=== PATIENT | male | born 1945 | race Caucasian/White ===

== ENCOUNTER 2019-11-04 20:16 | Inpatient (IN) | payer MEDICARE ==
[~2019-11-04] VITALS: Ht 193 cm; Wt 119.7 kg
[~2019-11-04 20:16] MED LIST: AMOX500 PO; ASPI325 PO; ATOR10; DIPASPER PO; LISHYD1012 PO; LISI5 PO; MULVITMIND PO; RAMI2.5 PO; TEMA7.5 PO
[2019-11-04] MEDS ORDERED: PRINIVIL10 MG PO (20:25)
[2019-11-05 01:56] LABS: BASOPHILS ABSOLUTE AUTO 0.02 K/mm3 (0.00-0.23); BASOPHILS PERCENT AUTO 0 % (0-2); EOSINOPHILS ABSOLUTE AUTO 0.02 K/mm3 (0.00-0.68); EOSINOPHILS PERCENT AUTO 0 % (0-6); Hemoglobin 14.2 g/dL (13.5-17.5); IMMATURE GRAN ABSOLUTE AUTO 0.06 K/mm3 (0.00-0.10); IMMATURE GRAN PERCENT AUTO 1 % (0-1); LYMPHOCYTES ABSOLUTE AUTO 0.67 K/mm3 (0.84-5.20); LYMPHOCYTES PERCENT AUTO 8 % (21-46); MONOCYTES ABSOLUTE AUTO 0.88 K/mm3 (0.16-1.47); MONOCYTES PERCENT AUTO 10 % (4-13); Mean Corpuscular HGB 31.7 pg (26.0-34.0); Mean Corpuscular Volume 96 fL (80-100); Mean Platelet Volume 12.3 fL (9.1-12.4); NEUTROPHILS ABSOLUTE AUTO 7.04 K/mm3 (1.96-9.15); NEUTROPHILS PERCENT AUTO 81 % (41-73); Platelet Count 100 K/mm3 (150-400); RDW Coefficient Variation 14.2 % (11.7-14.2); RDW Standard Deviation 50.2 fL (35.1-46.3); Red Blood Cell Count 4.48 M/mm3 (4.30-5.90); White Blood Cell Count 8.69 K/mm3 (4.00-11.30)
[2019-11-05 01:58] LABS: International Normalized Ratio 1.1; Prothrombin Time Results 11.7 Sec (9.7-11.5)
[2019-11-05 02:06] LABS: Alanine Aminotransfer (ALT/SGP 21 U/L (12-78); Albumin, Blood 3.7 g/dL (3.4-5.0); Albumin/Globulin Ratio 0.9 (0.8-1.8); Alk Phos 71 U/L (50-136); Anion Gap 4 mmol/L (6-16); Aspartate Aminotrans (AST/SGOT 24 U/L (12-37); Bilirubin, Total 1.1 mg/dL (0.1-1.0); Blood Urea Nitrogen 18 mg/dL (8-24); Bun/Creatinine Ratio 25.4 (12.0-20.0); CO2, Blood 29 mmol/L (21-32); Calcium, Blood 8.5 mg/dL (8.5-10.1); Chloride, Blood 106 mmol/L (98-108); Creatinine, Blood 0.71 mg/dL (0.60-1.20); Glomerular Filtration Rate >60 (60-); Glucose, Blood 119 mg/dL (70-99); Potassium, Blood 3.8 mmol/L (3.5-5.5); Sodium, Blood 139 mmol/L (136-145); Total Protein, Blood 7.7 g/dL (6.4-8.2)
--- NOTE | 2019-11-05 07:48 | NUR ---
PT NEW ADMIT THIS SHIFT FOR R HIP FX. PT VSS. PT REP PAIN JJ 06/01, DECLINED NEED FOR PAIN MEDS. PT REP BETTER ROM OF RLE, LESS PAIN W/MVMT, IS ABLE TO SHIFT SELF IN BED. PT NPO PER ORDERS, PENDING ORTHO CONSULT. BEDSIDE REPORT GIVEN TO DAY RN.
--- NOTE | 2019-11-05 08:44 | NUR ---
DR CASEY REPORTS OK TO GIVE LOVENOX THIS AM AND THAT PT MAY EAT THIS AM.
--- NOTE | 2019-11-05 13:36 | NUR ---
DR EDWARDS RECENTLY TO SEE PT.
--- NOTE | 2019-11-05 16:52 | NUR ---
DR CASEY HERE TO SEE PT.
--- NOTE | 2019-11-05 18:00 | NUR ---
SHIFT SUMMARY PT EATING AND DRINKING, VOIDING, PASSING GAS. PT MOVING SELF IN BED. BEEN ASSISTED WITH REPOSITIOINING AT TIMES. PT BEEN ASSISTED WITH ADL'S PRN. BRYANT VALENTINE IN TO SEE PT TODAY.
--- NOTE | 2019-11-06 05:47 | NUR ---
SHIFT SUMMARY PT IS A/OX4 WITH VSS. DECLINED PAIN OR NEED FOR PAIN MEDICATION T/O SHIFT, REPORTS DISCOMFORT ONLY WITH MOVEMENT. OFFERED MEDS AND EDUCATED ON IMPORTANCE OF PAIN CONTROL OFTEN. PT ALLOWED ASSISTANCE WITH REPOSITIONING PRN. ACCEPTED ICE THERAPY THIS MORNING. BED BATH AND LINEN CHANGED REQUIRED R/T URINAL. CL DIET SINCE MIDNIGHT. PLAN CL UNTIL 1000 TODAY, THEN NPO- PER ORDERS. PLAN FOR SURGERY TODAY FOR RIGHT HIP FX. PT IS CURRENTLY RESTING IN BED WITH CALL LIGHT IN REACH. WILL CONT TO MONITOR AND GIVE REPORT TO ONCOMING RN.
--- NOTE | 2019-11-06 12:36 | NUR ---
PT OUT OF ROOM FOR PROCEDURE.
--- NOTE | 2019-11-06 12:36 | NUR ---
PT OUT OF ROOM IN BED WITH OTHER STAFF. PT REPORTS RECENTLY VOIDED.
--- NOTE | 2019-11-06 12:47 | NUR ---
History, Chart, Medications and Allergies reviewed before start of procedure. Patient confirms NPO status and agrees with scheduled surgery.
--- NOTE | 2019-11-06 13:03 | NUR ---
KNEE HIGH ERIN HOSE AND CALF PAS TO LLE INTACT.
--- NOTE | 2019-11-06 13:29 | NUR ---
NOZIN NASAL TANKAGE GRINDER OPERATOR X3 AMPULES TO NARES BILAT.
--- NOTE | 2019-11-06 18:32 | NUR ---
SHIFT SUMMARY PT WAS CLEAR LIQ UNTIL 10:OO AM. PT BEEN PLEASANT AND COOPERATIVE. PT PT BEEN ASSISTED WITH ADL'S PRN. PT CONT TO BE OUT OF ROOM FOR PROCEDURE.
--- NOTE | 2019-11-06 19:29 | NUR ---
REPORT RECEIVED FROM PACU NURSE, LO AT THIS TIME. AWAITING PT ARRIVAL TO UNIT FROM PACU.
[2019-11-06 19:43] LABS: Hemoglobin 12.1 g/dL (13.5-17.5); Mean Corpuscular HGB 31.8 pg (26.0-34.0); Mean Corpuscular HGB Conc 32.7 g/dL (31.5-36.5); Mean Corpuscular Volume 97 fL (80-100); Mean Platelet Volume 12.1 fL (9.1-12.4); Platelet Count 75 K/mm3 (150-400); RDW Coefficient Variation 14.3 % (11.7-14.2); RDW Standard Deviation 51.5 fL (35.1-46.3); White Blood Cell Count 10.21 K/mm3 (4.00-11.30)
--- NOTE | 2019-11-06 20:18 | NUR ---
ARRIVAL TO SURGICAL FLOOR FROM PACU PT ARRIVED FROM PACU AT 1945 TODAY VIA HOSPITAL BED. PT A/OX4 WITH VSS. DENIES CP, SOB, OR PAIN. ABLE TO WIGGLE FINGERS/TOES. SPO2 AT 99% ON 3L NC, WILL WEAN PER ORDERS. PT DENIES N/V, REQUESTING FOOD AND WATER. AQUACEL TO R HIP APPEARS C/D/I. SCD'S, POLAR PACK, AND ERIN IN PLACE. IVF INFUSING PER ORDERS. EDUCATED ON TURN/COUGH/DB, PT DEMONSTRATED. PT CURRENTLY RESTING IN BED WITH CALL LIGHT IN REACH. WILL CONT TO MONITOR.
--- NOTE | 2019-11-07 01:20 | NUR ---
DR. HYLTON NOTIFIED OF PT'S TRENDING DOWN BP WITH MOST RECENT AT 87/54 HR 75. PT IS A/OX4 AND ASYMPTOMATIC. ORDERS FOR 500ML FLUID BOLUS WO OBTAINED. WILL IMPLEMENT ORDER AND CONT TO MONITOR PATIENT.
--- NOTE | 2019-11-07 02:11 | NUR ---
BP UPDATE PT'S BP AFTER BOLUS IS 99/58 WITH HR OF 87 BPM. PT APPEARS TO BE RESTING COMFORTABLY IN BED. IS EASILY AROUSABLE. DENIES NEEDS. HAS CALL LIGHT IN REACH. WILL CONT TO MONITOR.
--- NOTE | 2019-11-07 03:47 | NUR ---
SHIFT SUMMARY POD 1 RIGHT HIP REVISION; AQUACEL C/D/I. A/OX4, VSS AFTER 500ML BOLUS. SPO2 AT 93% ON 2L, ENCOURAGED FREQUENT DEEP BREATHING/TURN/COUGH. IVF AND ABX INFUSED PER ORDERS. POLAR PACK, TEDS, FOAM WEDGE, AND SCDS IN PLACE. DENIED PAIN T/O SHIFT. GOOD PO INTAKE, DENIES N/V. DERAS REMOVED AT 0345, AWAITING VOID. REPOSITIONED PRN, PT ABLE TO ASSIST. APPEARS TO HAVE SLEPT WELL T/O SHIFT. PLAN FOR PT/OT TODAY. PT CURRENTLY RESTING IN BED WITH CALL LIGHT IN REACH. WILL CONT TO MONITOR AND GIVE REPORT TO ONCOMING RN.
[2019-11-07 04:23] LABS: BASOPHILS ABSOLUTE AUTO 0.01 K/mm3 (0.00-0.23); BASOPHILS PERCENT AUTO 0 % (0-2); EOSINOPHILS PERCENT AUTO 0 % (0-6); Hematocrit 33.7 % (37.0-53.0); Hemoglobin 10.8 g/dL (13.5-17.5); IMMATURE GRAN ABSOLUTE AUTO 0.04 K/mm3 (0.00-0.10); IMMATURE GRAN PERCENT AUTO 0 % (0-1); LYMPHOCYTES ABSOLUTE AUTO 0.61 K/mm3 (0.84-5.20); LYMPHOCYTES PERCENT AUTO 7 % (21-46); MONOCYTES ABSOLUTE AUTO 0.76 K/mm3 (0.16-1.47); MONOCYTES PERCENT AUTO 8 % (4-13); Mean Corpuscular HGB 31.8 pg (26.0-34.0); Mean Corpuscular Volume 99 fL (80-100); Mean Platelet Volume 12.3 fL (9.1-12.4); NEUTROPHILS ABSOLUTE AUTO 7.96 K/mm3 (1.96-9.15); NEUTROPHILS PERCENT AUTO 85 % (41-73); Platelet Count 72 K/mm3 (150-400); RDW Coefficient Variation 14.3 % (11.7-14.2); RDW Standard Deviation 52.1 fL (35.1-46.3); White Blood Cell Count 9.38 K/mm3 (4.00-11.30)
[2019-11-07 04:34] LABS: Anion Gap 2 mmol/L (6-16); Blood Urea Nitrogen 19 mg/dL (8-24); Bun/Creatinine Ratio 29.3 (12.0-20.0); CO2, Blood 27 mmol/L (21-32); Calcium, Blood 7.7 mg/dL (8.5-10.1); Chloride, Blood 108 mmol/L (98-108); Creatinine, Blood 0.65 mg/dL (0.60-1.20); Glomerular Filtration Rate >60 (60-); Glucose, Blood 150 mg/dL (70-99); Potassium, Blood 4.3 mmol/L (3.5-5.5); Sodium, Blood 137 mmol/L (136-145)
--- NOTE | 2019-11-07 17:18 | NUR ---
SHIFT SUMMARY PT IS POD#1 FROM A R HIP REPAIR WITH DR. CASEY. HE WORKED WITH THERAPY BUT WAS UNABLE TO GET OOB TO THE CHAIR. HE IS VOIDING USING THE URINAL. PAIN HAS BEEN MANAGED WITH OXYCODONE AND TYLENOL. PT IS TOLERATING PO. VSS. WILL MONITOR UNTIL REPORT TO ONCOMING RN.
[2019-11-08 04:21] LABS: BASOPHILS ABSOLUTE AUTO 0.02 K/mm3 (0.00-0.23); BASOPHILS PERCENT AUTO 0 % (0-2); EOSINOPHILS ABSOLUTE AUTO 0.18 K/mm3 (0.00-0.68); EOSINOPHILS PERCENT AUTO 2 % (0-6); Hematocrit 32.2 % (37.0-53.0); Hemoglobin 10.4 g/dL (13.5-17.5); IMMATURE GRAN ABSOLUTE AUTO 0.04 K/mm3 (0.00-0.10); IMMATURE GRAN PERCENT AUTO 1 % (0-1); LYMPHOCYTES ABSOLUTE AUTO 0.88 K/mm3 (0.84-5.20); LYMPHOCYTES PERCENT AUTO 11 % (21-46); MONOCYTES ABSOLUTE AUTO 0.69 K/mm3 (0.16-1.47); MONOCYTES PERCENT AUTO 8 % (4-13); Mean Corpuscular HGB 31.7 pg (26.0-34.0); Mean Corpuscular HGB Conc 32.3 g/dL (31.5-36.5); Mean Corpuscular Volume 98 fL (80-100); Mean Platelet Volume 12.6 fL (9.1-12.4); NEUTROPHILS ABSOLUTE AUTO 6.38 K/mm3 (1.96-9.15); NEUTROPHILS PERCENT AUTO 78 % (41-73); Platelet Count 82 K/mm3 (150-400); RDW Coefficient Variation 14.4 % (11.7-14.2); Red Blood Cell Count 3.28 M/mm3 (4.30-5.90); White Blood Cell Count 8.19 K/mm3 (4.00-11.30)
[2019-11-08 04:43] LABS: Anion Gap 3 mmol/L (6-16); Blood Urea Nitrogen 22 mg/dL (8-24); Bun/Creatinine Ratio 30.8 (12.0-20.0); CO2, Blood 27 mmol/L (21-32); Calcium, Blood 7.9 mg/dL (8.5-10.1); Chloride, Blood 108 mmol/L (98-108); Creatinine, Blood 0.72 mg/dL (0.60-1.20); Glomerular Filtration Rate >60 (60-); Glucose, Blood 109 mg/dL (70-99); Potassium, Blood 4.1 mmol/L (3.5-5.5); Sodium, Blood 138 mmol/L (136-145)
--- NOTE | 2019-11-08 04:55 | NUR ---
SHIFT SUMMARY POD 2 TOTAL HIP REVISION WITH ORIF AA0X4,VSS. PT DENIES PAIN DURING SHIFT, MEDICATED PER EMAR. DRESSING CDI. PT USING CALL LIGHT APPROPRIATLY. VOIDING IN URINAL. TOLERATING PO WELL. PLAN TO CONTINUE WORKING WITH THERAPY TODAY.
--- NOTE | 2019-11-08 11:58 | NUR ---
11/08/19 1158 Papst,Catracho D IMPLANTS DOCUMENTED AFTER BUILT
--- NOTE | 2019-11-08 12:45 | NUR ---
PT HAS BEEN ENCOURAGED T/O THE DAY TO GET OOB AND SIT IN HIS CHAIR. HE HAS DECLINED, STATING THAT HE DID NOT SLEEP WELL LAST NIGHT AND WISHED TO REMAIN IN BED. PT DID PARTICIPATE WITH THERAPY AND SAT UP TO THE CHAIR DURING THERAPY. CASSANDRA DENTON NOTIFIED. WILL CONTINUE TO ENCOURAGE MOBILITY UNTIL DISCHARGE. PLAN TO PROVIDE EDUCATION REGARDING RISKS OF LIMITED MOVEMENT.
--- NOTE | 2019-11-08 14:03 | NUR ---
SHIFT SUMMARY PT IS POD# 2 FROM R HIP REPAIR WITH DR. CASEY. HE IS TOLERATING PO; HOWEVER HIS URINE REMAINS DARK AND CONCENTRATED. PT PROVIDED WITH PEDIALYTE PER HIS REQUEST FOR HYDRATION. PT WAS ABLE TO STAND AT THE EDGE OF THE BED; HOWEVER HE HAS BEEN UNABLE TO MAINTAIN WB STATUS TO TRANSFER TO A CHAIR. HE LIKES TO DO THERAPY EXERCISES IN BED INDEPENDENTLY. VSS.
--- NOTE | 2019-11-08 14:33 | NUR ---
ASSUMED CARE OF PT, DENIES ANY PAIN OR ANY DISCOMFORT AT THIS TIME, ASSISTED TO REPOSITION IN BED, REPORTS HE HAS BEEN WORKING ON HIS BED EXERCISES PER PT, DSG C/D/I, CONT. TO MONITOR FOR ANY CHANGES.
--- NOTE | 2019-11-08 18:27 | NUR ---
REPORTS ABD PAIN IS SLIGHTLY BETTER, DENIES ANY NAUSEA BUT C/O FEELING CONSTIPATED, MOM GIVEN THIS AFTERNOON, NO ACUTE CHANGES THIS SHIFT.
[2019-11-09 03:59] LABS: BASOPHILS ABSOLUTE AUTO 0.01 K/mm3 (0.00-0.23); BASOPHILS PERCENT AUTO 0 % (0-2); EOSINOPHILS ABSOLUTE AUTO 0.17 K/mm3 (0.00-0.68); EOSINOPHILS PERCENT AUTO 2 % (0-6); Hematocrit 29.3 % (37.0-53.0); Hemoglobin 9.4 g/dL (13.5-17.5); IMMATURE GRAN ABSOLUTE AUTO 0.03 K/mm3 (0.00-0.10); IMMATURE GRAN PERCENT AUTO 0 % (0-1); LYMPHOCYTES ABSOLUTE AUTO 0.79 K/mm3 (0.84-5.20); LYMPHOCYTES PERCENT AUTO 10 % (21-46); MONOCYTES ABSOLUTE AUTO 0.78 K/mm3 (0.16-1.47); MONOCYTES PERCENT AUTO 10 % (4-13); Mean Corpuscular HGB 31.6 pg (26.0-34.0); Mean Corpuscular HGB Conc 32.1 g/dL (31.5-36.5); Mean Corpuscular Volume 99 fL (80-100); Mean Platelet Volume 11.9 fL (9.1-12.4); NEUTROPHILS ABSOLUTE AUTO 6.02 K/mm3 (1.96-9.15); NEUTROPHILS PERCENT AUTO 77 % (41-73); Platelet Count 94 K/mm3 (150-400); RDW Coefficient Variation 14.3 % (11.7-14.2); RDW Standard Deviation 52.3 fL (35.1-46.3); Red Blood Cell Count 2.97 M/mm3 (4.30-5.90)
[2019-11-09 04:14] LABS: Anion Gap 2 mmol/L (6-16); Blood Urea Nitrogen 20 mg/dL (8-24); Bun/Creatinine Ratio 31.2 (12.0-20.0); CO2, Blood 28 mmol/L (21-32); Calcium, Blood 7.6 mg/dL (8.5-10.1); Chloride, Blood 108 mmol/L (98-108); Creatinine, Blood 0.64 mg/dL (0.60-1.20); Glomerular Filtration Rate >60 (60-); Glucose, Blood 102 mg/dL (70-99); Potassium, Blood 4.1 mmol/L (3.5-5.5); Sodium, Blood 138 mmol/L (136-145)
--- NOTE | 2019-11-09 06:06 | NUR ---
SHIFT SUMMARY POD 3 TOTAL HIP REVISION WITH ORIF AA0X4, TEMP OF 100.7 BEGINNING OF SHIFT. MEDICATED WITH TYLENOL AND ENCOURAGED INCENTIVE SPIROMETRY. TEMP DECREASED TO WNL. PT DECLINING REPOSITIONING AND DECLINING SOME MEDICATIONS, ATTEMPTED TO EDUCATE PT. AQUACEL DRESSING IN PLACE AND POLAR AMIRAH ON. PT VOIDING USING URINAL. PT STATES HE IS TRYING TO HAVE A BOWEL MOVEMENT BUT DECLINED ATTEMPTS TO ASSIST TO BSC OR BEDPAN. PLAN WILL BE TO WORK WITH THERAPY TODAY.
--- NOTE | 2019-11-09 18:50 | NUR ---
SHIFT SUMMARY PATIENT HAS DENIED NEEDING PAIN MED THIS SHIFT. UP TO STAND WITH PT, MOVES SLOWLY. UNABLE TO TRANSFER TO CHAIR, BACK TO BED. PATIENT SOMEWHAT DIFFICULT TO DIRECT, HE DOES NOT ALWAYS LISTEN TO CUES. OVERALL, PLEASANT AND COOPERATIVE WITH CARE. APPETITE GOOD. BOWEL CARE GIVEN, NO RESULTS. RLE CIRC CHECKS WNL. R HIP DRESSING CHANGED THIS AM, REMAINS D&I. BRUISING AND SWELLING TO R HIP, ICE IN PLACE. VOIDING TO URINAL. NO C/O AT THIS TIME.
--- NOTE | 2019-11-10 06:10 | NUR ---
SHIFT SUMMARY: JEFF IS A&OX4. HE IS A HEAVY TWO PERSON ASSIST TO THE BEDSIDE COMMODE. HE IS TOLERAING PO INTAKE WELL WITH THE EXCEPTION OF SOME REPORTED NAUSEA THIS MORNING. HE REPORTED MINIMAL IMPROVEMENT WITH ORAL PHENERGAN. HE COMPLAINED OF CONSTIPATION FOR WHICH HE WAS GIVEN A SUPPOSITORY. NO ACUTE EVENTS OVERNIGHT. HE WAS ENCOURAGED TO DB&C AND USE THE IS. HE IS USING THE URINAL WITHOUT DIFFICULTIES. HE IS ABLE TO MAKE HIS NEEDS KNOWN. WILL REPORT TO DAY SHIFT RN.
--- NOTE | 2019-11-10 16:27 | NUR ---
SHIFT SUMMARY PT A&OX4, VSS, POD4 TOTAL REVISION WITH ORIF R HIP, SURGICAL DRESSING CHANGED TODAY, TTWB. STAND PIVOT TRANSFER, 2 PP, FWW & GB; LIFT SHEET UNDER PATIENT NOW. UP TO CHAIR FOR 3 HOURS TODAY. JJ PO, PHENERGAN GIVEN X1. NO IV ACCESS. VOIDING WELL USING URINAL; BEDPAN FOR BM EARLY AM TODAY. DENIES PAIN. WILL REPORT TO ONCOMING NOC RN.
--- NOTE | 2019-11-11 05:38 | NUR ---
SHIFT SUMMARY: JEFF IS A&OX4. VSS, NO ACUTE EVENTS OVERNIGHT. HE HAS COMPLAINED OF NAUSEA FOR WHICH HE STATES THE PHENERGAN IS INEFFECTIVE. HE STATED THAT THE SODIUM BICARB TABLET WAS EFFECTIVE "FOR A LITTLE WHILE". HE PLANS TO HAVE SOMEONE BRING HIM NIKITA JAUREGUI FROM HOME TODAY WHICH HE STATES WILL "FIX ME UP". HE WAS ENCOURAGED TO KEEP SMALL AMOUNTS OF FOOD ON HIS STOMACH CONSISTENTLY. HE IS USING THE URINAL WITHOUT DIFFICULTY. HE IS ABLE TO MAKE HIS NEEDS KNOWN. WILL REPORT TO DAY SHIFT RN.
--- NOTE | 2019-11-11 09:30 | NUR ---
PT REFUSED ALL MORNING MEDICATION DUE TO "NOT FEELING WELL". DR LIM NOTIFIED THAT PT WAS HAVING UPSET STOMACH AND PT REQUEST FOR BAKING SODA WATER SINCE OUR PHARMACY DOES NOT CARRY NIKITA JAUREGUI. TELEPHONE ORDER OBTAINED. WILL CONTACT [facility] REGARDING SNF PLACEMENT TODAY PT TEMPS HAVE BEEN BELOW 99.
--- NOTE | 2019-11-11 09:50 | NUR ---
NINI CHRISTOPHER PT IS CLEARED TO DC TO [facility] TODAY.
--- NOTE | 2019-11-11 19:35 | NUR ---
SHIFT SUMMARY PT HAS CONTINUED TO SHOW IMPROVEMENT WITH NAUSEA T/O SHIFT. MEDICATED WITH PHENERGAN ONCE. TOLERATING SMALL AMOUNT OF APPLESAUCE AND SIPS OF WATER THIS AFTERNOON. PLAN TO DC TO SNF.
[2019-11-12 04:21] LABS: BASOPHILS ABSOLUTE AUTO 0.02 K/mm3 (0.00-0.23); BASOPHILS PERCENT AUTO 0 % (0-2); EOSINOPHILS ABSOLUTE AUTO 0.31 K/mm3 (0.00-0.68); EOSINOPHILS PERCENT AUTO 5 % (0-6); Hematocrit 31.7 % (37.0-53.0); IMMATURE GRAN ABSOLUTE AUTO 0.04 K/mm3 (0.00-0.10); IMMATURE GRAN PERCENT AUTO 1 % (0-1); LYMPHOCYTES ABSOLUTE AUTO 0.72 K/mm3 (0.84-5.20); LYMPHOCYTES PERCENT AUTO 11 % (21-46); MONOCYTES ABSOLUTE AUTO 0.66 K/mm3 (0.16-1.47); MONOCYTES PERCENT AUTO 10 % (4-13); Mean Corpuscular HGB Conc 31.5 g/dL (31.5-36.5); Mean Corpuscular Volume 98 fL (80-100); NEUTROPHILS ABSOLUTE AUTO 4.68 K/mm3 (1.96-9.15); NEUTROPHILS PERCENT AUTO 73 % (41-73); Platelet Count 177 K/mm3 (150-400); RDW Coefficient Variation 14.2 % (11.7-14.2); RDW Standard Deviation 50.7 fL (35.1-46.3); Red Blood Cell Count 3.23 M/mm3 (4.30-5.90); White Blood Cell Count 6.43 K/mm3 (4.00-11.30)
[2019-11-12 04:47] LABS: Alanine Aminotransfer (ALT/SGP 34 U/L (12-78); Albumin, Blood 2.4 g/dL (3.4-5.0); Albumin/Globulin Ratio 0.6 (0.8-1.8); Alk Phos 56 U/L (50-136); Anion Gap 5 mmol/L (6-16); Aspartate Aminotrans (AST/SGOT 47 U/L (12-37); Bilirubin, Total 1.5 mg/dL (0.1-1.0); Blood Urea Nitrogen 13 mg/dL (8-24); CO2, Blood 29 mmol/L (21-32); Calcium, Blood 8.1 mg/dL (8.5-10.1); Chloride, Blood 103 mmol/L (98-108); Creatinine, Blood 0.57 mg/dL (0.60-1.20); Globulin, Blood 3.9 g/dL (2.2-4.0); Glomerular Filtration Rate >60 (60-); Glucose, Blood 84 mg/dL (70-99); Potassium, Blood 3.9 mmol/L (3.5-5.5); Sodium, Blood 137 mmol/L (136-145); Total Protein, Blood 6.3 g/dL (6.4-8.2); Troponin I <0.015 ng/mL (0.000-0.040)
--- NOTE | 2019-11-12 05:28 | NUR ---
SHIFT SUMMARY PT IS AO X4. PT REPOSITIONS SELF IN BED AND HAS BEEN ASSISTED PRN. PT HAS REPORTED NO NAUSEA T/O SHIFT. PT REPORTS NO GI UPSET OVER NIGHT. PAIN MANAGED WITH TYLENOL. PT IS VOIDING, USING URINAL. NO ACUTE CHANGES OVERNIGHT.
--- NOTE | 2019-11-12 09:31 | NUR ---
RECENTLY GIVEN REPORT AND AM ASSUMING CARE.
--- NOTE | 2019-11-12 09:36 | NUR ---
DR GARZA HERE TO SEE PT.
--- NOTE | 2019-11-12 10:34 | NUR ---
NANDINI GIVEN REPORT AND IS ASSUMING CARE OF PT AT THIS TIME.
--- NOTE | 2019-11-12 14:15 | NUR ---
DISCHARGE: [facility] VIA GURNEY [facility]SFER. PT BELONGINGS SENT WITH HIM. NO IV. DRESSING SUPPLIES AND POLAR PACK ALSO WITH PATIENT. REPORT CALLED TO ACCEPTING RN AT FACILITY.
== END 2019-11-12 14:23 | DRG 467 ==
LOC: ER 20:16 → SURS 11-05 00:39
PROVIDERS: Anesthesiology; Hospitalist; Internal Medicine Gastroenterology; Orthopaedic Surgery; ADMIT Internal Medicine
PROC: 0SP90JZ Removal of Synthetic Substitute from Right Hip Joint, Open Approach (ICD-10-PCS; 2019-11-06)
PROC: 0SR903Z Replacement of Right Hip Joint with Ceramic Synthetic Substitute, Open Approach (ICD-10-PCS; principal; 2019-11-06 13:30)
DX: S72.141A Displaced intertrochanteric fracture of right femur, initial encounter for closed fracture (principal); M97.01XA Periprosthetic fracture around internal prosthetic right hip joint, initial encounter; Z96.641 Presence of right artificial hip joint; I10 Essential (primary) hypertension; Z86.73 Personal history of transient ischemic attack (TIA), and cerebral infarction without residual deficits; W18.30XA Fall on same level, unspecified, initial encounter; Y92.008 Other place in unspecified non-institutional (private) residence as the place of occurrence of the external cause; G60.0 Hereditary motor and sensory neuropathy; D69.6 Thrombocytopenia, unspecified
CPT/HCPCS: 36415; 72170; 72192; 73502; 76700; 80048; 80053; 84484; 85025; 85027; 85610; 86022; 86850; 86900; 86901; 93005; 93010; 97110; 97116; 97162; 97167; 97530; 97535; 99285-25; A9270-GY; C1776; J0171; J0690; J0735; J1100; J1650; J1885; J2250; J2370; J2405; J2704; J2710; J2795; J3010; J7030; J7040; J7120; U0002

== ENCOUNTER 2019-11-24 16:39 | Inpatient (IN) | payer MEDICARE ==
[~2019-11-24] VITALS: Ht 193 cm; Wt 110.4 kg
[2019-11-24 17:30] LABS: BASOPHILS ABSOLUTE AUTO 0.01 K/mm3 (0.00-0.23); BASOPHILS PERCENT AUTO 0 % (0-2); EOSINOPHILS ABSOLUTE AUTO 0.21 K/mm3 (0.00-0.68); EOSINOPHILS PERCENT AUTO 5 % (0-6); Hematocrit 32.5 % (37.0-53.0); Hemoglobin 10.9 g/dL (13.5-17.5); IMMATURE GRAN ABSOLUTE AUTO 0.01 K/mm3 (0.00-0.10); IMMATURE GRAN PERCENT AUTO 0 % (0-1); LYMPHOCYTES ABSOLUTE AUTO 0.45 K/mm3 (0.84-5.20); LYMPHOCYTES PERCENT AUTO 11 % (21-46); MONOCYTES ABSOLUTE AUTO 0.48 K/mm3 (0.16-1.47); MONOCYTES PERCENT AUTO 11 % (4-13); Mean Corpuscular HGB 31.6 pg (26.0-34.0); Mean Corpuscular HGB Conc 33.5 g/dL (31.5-36.5); Mean Corpuscular Volume 94 fL (80-100); NEUTROPHILS ABSOLUTE AUTO 3.08 K/mm3 (1.96-9.15); NEUTROPHILS PERCENT AUTO 73 % (41-73); Platelet Count 185 K/mm3 (150-400); RDW Coefficient Variation 13.8 % (11.7-14.2); RDW Standard Deviation 47.4 fL (35.1-46.3); Red Blood Cell Count 3.45 M/mm3 (4.30-5.90); White Blood Cell Count 4.24 K/mm3 (4.00-11.30)
[2019-11-24 18:13] LABS: Alanine Aminotransfer (ALT/SGP 21 U/L (12-78); Albumin, Blood 2.7 g/dL (3.4-5.0); Albumin/Globulin Ratio 0.6 (0.8-1.8); Alk Phos 99 U/L (50-136); Anion Gap 7 mmol/L (6-16); Aspartate Aminotrans (AST/SGOT 26 U/L (12-37); Bilirubin, Total 1.2 mg/dL (0.1-1.0); Blood Urea Nitrogen 15 mg/dL (8-24); Bun/Creatinine Ratio 20.9 (12.0-20.0); CO2, Blood 23 mmol/L (21-32); Calcium, Blood 8.4 mg/dL (8.5-10.1); Chloride, Blood 102 mmol/L (98-108); Creatinine, Blood 0.72 mg/dL (0.60-1.20); Globulin, Blood 4.2 g/dL (2.2-4.0); Glomerular Filtration Rate >60 (60-); Glucose, Blood 98 mg/dL (70-99); Sodium, Blood 132 mmol/L (136-145); Total Protein, Blood 6.9 g/dL (6.4-8.2)
[2019-11-24 18:53] LABS: International Normalized Ratio 1.28; Prothrombin Time Results 13.5 Sec (9.7-11.5)
--- NOTE | 2019-11-25 00:23 | NUR ---
PT ARRIVED ON MEDICAL FLOOR FROM ER AT 2340. AAOX4. T/F FROM STRETCHER TO BED W/SLIDE SHEET AND 3 ASSIST. NO C/O PAIN AT THIS TIME. INCISION ON R HIP ED, EDGES WELL APPROXIMATED W/ JUSTYN IN PLACE. JAIMEE INCISIONAL ERYTHEMA PRESENT. AFEB. PULSE 105. BED LOW, CALL BUTTON EXPLAINED AND PLACED WITHIN REACH. WILL CONT TO MONITOR.
[2019-11-25 05:41] LABS: BASOPHILS ABSOLUTE AUTO 0.01 K/mm3 (0.00-0.23); BASOPHILS PERCENT AUTO 0 % (0-2); EOSINOPHILS ABSOLUTE AUTO 0.26 K/mm3 (0.00-0.68); EOSINOPHILS PERCENT AUTO 7 % (0-6); Hemoglobin 10.3 g/dL (13.5-17.5); IMMATURE GRAN ABSOLUTE AUTO 0.02 K/mm3 (0.00-0.10); IMMATURE GRAN PERCENT AUTO 1 % (0-1); LYMPHOCYTES ABSOLUTE AUTO 0.41 K/mm3 (0.84-5.20); LYMPHOCYTES PERCENT AUTO 12 % (21-46); MONOCYTES ABSOLUTE AUTO 0.51 K/mm3 (0.16-1.47); MONOCYTES PERCENT AUTO 14 % (4-13); Mean Corpuscular HGB 31.1 pg (26.0-34.0); Mean Corpuscular HGB Conc 32.2 g/dL (31.5-36.5); Mean Corpuscular Volume 97 fL (80-100); Mean Platelet Volume 11.1 fL (9.1-12.4); NEUTROPHILS ABSOLUTE AUTO 2.37 K/mm3 (1.96-9.15); NEUTROPHILS PERCENT AUTO 66 % (41-73); Platelet Count 165 K/mm3 (150-400); RDW Coefficient Variation 13.9 % (11.7-14.2); RDW Standard Deviation 49.7 fL (35.1-46.3); Red Blood Cell Count 3.31 M/mm3 (4.30-5.90); White Blood Cell Count 3.58 K/mm3 (4.00-11.30)
--- NOTE | 2019-11-25 05:47 | NUR ---
SHIFT SUMMARY: TEMP 100.1 AND 99.2. ABT INFUSED ORDERED. PT NPO SINCE MIDNIGHT. R HIP INCISION W/EDGES WELL APPROXIMATED. REMAINS ED. NO DRAINAGE. NEEDLE ASPIRATION SITE W/BANDAID IN PLACE. JAIMEE-INCISIONAL ERYTHEMA. PT CONT TO DENY PAIN. B FOOT DROP. PT STATES HE WEARS B FOOT ORTHOTICS WHEN WALKING BUT THEY [facility]. BLE WEAKNESS W/VERY LITTLE MOVEMENT WHEN ASKED TO PUSH AND PULL. WILL CONT TO MONITOR.
[2019-11-25 06:05] LABS: Anion Gap 6 mmol/L (6-16); Blood Urea Nitrogen 15 mg/dL (8-24); Bun/Creatinine Ratio 21.4 (12.0-20.0); CO2, Blood 24 mmol/L (21-32); Calcium, Blood 7.8 mg/dL (8.5-10.1); Chloride, Blood 104 mmol/L (98-108); Glomerular Filtration Rate >60 (60-); Glucose, Blood 98 mg/dL (70-99); Potassium, Blood 4.2 mmol/L (3.5-5.5); Sodium, Blood 134 mmol/L (136-145)
--- NOTE | 2019-11-25 16:08 | NUR ---
SHIFT SUMMARY PT IS A/O X 4 WITH NO C/O PAIN. HE RESIDES CURRENTLY AT [facility] AND IS THERE S/P RIGHT HIP REPAIR AFTER A FALL. PER REPORT THE NURSE AT THE SNF SENT HIM TO THE ER DUE TO S/S OF INFECTION TO HIS RIGHT HIP SURGICAL SITE. THE SITE IS WARM AND PINK AND ED . DR LAUGHLIN WAS CONSULTED AND SAW THE PT THIS MORNING AND REPORTS THAT IT IS NOT SURGICAL. PT CONTINUES ON IV ABO ORDERED WITH NO ISSUE. HIS IV DID INFILTRATE THIS AFTERNOON AND A NEW LINE WAS STARTED ON HIS LEFT FA. PT HAS BEEN ON HIS PHONE WITH FRIENDS/ FAMILY ALL DAY. HE IS ABLE TO MAKE HIS NEEDS KNOWN AND DOES SO OFTEN. HE HAS HIS CALL LIGHT IN REACH AND USES THE URINAL AT THE BEDSIDE.
--- NOTE | 2019-11-26 05:17 | NUR ---
SHIFT SUMMARY- PT. A&O, PLEASANT AND COOPERATIVE WITH CARE. PT. S/P RT HIP REPAIR DUE TO FALL AT HOME W/SUSPECTED INFECTION. PT. FROM REHAB. DENIED ANY C/O PAIN OR DISCOMFORT T/O THE NIGHT. TOLERATING IV ABX'S WELL. PT. NPO FOR POSS SURGERY TODAY. RESTING COMFORTABLY IN BED, NO APPARENT DISTRESS NOTED. CALL LIGHT WITHIN REACH AND SIDE RAILS UP X2. WILL CONT TO MONITOR.
[2019-11-26 08:38] LABS: Creatinine, Blood 0.61 mg/dL (0.60-1.20); Vancomycin, Trough 11.7 ug/mL (5.0-10.0)
--- NOTE | 2019-11-26 16:00 | NUR ---
SHIFT SUMMARY PT IS A/O X 4 WITH NO C/O PAIN. HE IS BED/CHAIR BOUND AT BASELINE. HE USES A URINAL AT THE BEDSIDE. PT HAS BEEN NPO SINCE MIDNIGHT FOR A POSSIBLE CLEAN OUT OF HIS RIGHT HIP INCISION BUT DR CASEY HAS YET TO SEE HIM. THE PT CONTINUES TO AWAIT A VISIT FROM THE ORTHOPEDIC SURGEON TO DISCUSS PLAN OF CARE. THE CHARGE NURSE IS AWARE AND MESSAGES HAVE BEEN LEFT WITH THE DOCTORS OFFICE. THE PT IS ABLE TO MAKE HIS NEEDS KNOWN AND CALLS FREQUENTLY.
--- NOTE | 2019-11-26 21:31 | NUR ---
ASSUMED CARE. AOX3, PLEASANT, TALKATIVE. DISCUSSED EVENT THAT LEAD UP TO TODAY. DENIES PAIN OR DISCOMFORT. RIGHT HIP DRESSING INTACT, WARM TO TOUCH, REDNESS NOTED AROUND SITE. EDEMA FROM HIP TO TOES 3+. NO NUMBNESS OR TINGLING. 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 DISCUSSED PLAN FOR TONIGHT. PT ASKING FOR PT REFERRAL AFTER DISCHARGE, WOULD LIKE TO GO TO HIS HOME INSTEAD OF REHAB. [facility] AND [facility]. WILL NOTE THIS AND HAVE DAY SHIFT DISCUSS WITH ORTHO DOCTOR TOMORROW. IV FLUSHED WELL. USES URINAL IN BED. ABLE TO MOVE FROM SIDE TO SIDE. ELEVATED FEET. MEDS GIVEN. VANCO HUNG. VS GOOD. CALL LIGHT IN REACH.
--- NOTE | 2019-11-27 05:14 | NUR ---
SHIFT SUMMARY: PT WAS PLEASANT AND COOPERATIVE TONIGHT. NO PAIN OR DISCOMFORT. RIGHT HIP CONTINUES TO HAVE WARMTH TO TOUCH, SWELLING AND REDNESS AROUND DRESSING SITE. IV ANTIBOTICS GIVEN PER ORDERS. REPOSITIONES SELF IN BED. NPO AFTER MIDNIGHT. HAS BEEN WATCHING TV OFF AND ON TONIGHT, SLEEPING AT OTHER TIMES. VS STABLE. REQUEST TO HAVE PT ORDERED FOR HOME DISCHARGE, [facility]. HE DOES NOT WANT TO GO BACK TO REHAB. WILL NEED 2WW. WILL CONTINUE TO PROVIDE CARE TILL DAY SHIFT ARRIVES.
[2019-11-27 08:45] LABS: BASOPHILS ABSOLUTE AUTO 0.01 K/mm3 (0.00-0.23); BASOPHILS PERCENT AUTO 0 % (0-2); EOSINOPHILS ABSOLUTE AUTO 0.27 K/mm3 (0.00-0.68); EOSINOPHILS PERCENT AUTO 6 % (0-6); Hematocrit 32.6 % (37.0-53.0); Hemoglobin 10.6 g/dL (13.5-17.5); IMMATURE GRAN ABSOLUTE AUTO 0.01 K/mm3 (0.00-0.10); IMMATURE GRAN PERCENT AUTO 0 % (0-1); LYMPHOCYTES PERCENT AUTO 16 % (21-46); MONOCYTES ABSOLUTE AUTO 0.48 K/mm3 (0.16-1.47); MONOCYTES PERCENT AUTO 11 % (4-13); Mean Corpuscular HGB 31.2 pg (26.0-34.0); Mean Corpuscular HGB Conc 32.5 g/dL (31.5-36.5); Mean Corpuscular Volume 96 fL (80-100); Mean Platelet Volume 10.9 fL (9.1-12.4); NEUTROPHILS PERCENT AUTO 67 % (41-73); Platelet Count 137 K/mm3 (150-400); RDW Coefficient Variation 13.5 % (11.7-14.2); RDW Standard Deviation 47.8 fL (35.1-46.3); White Blood Cell Count 4.47 K/mm3 (4.00-11.30)
--- NOTE | 2019-11-27 14:08 | NUR ---
History, Chart, Medications and Allergies reviewed before start of procedure. Lungs clear T/O to Auscultation. Patient confirms NPO status and agrees with scheduled surgery. Pre-Op teaching done. Pt verbalizes understanding.
--- NOTE | 2019-11-27 15:30 | NUR ---
11/27/19 1530 Zane Rodríguez ON SCHEDULED ANTIBIOTICS
--- NOTE | 2019-11-27 15:54 | NUR ---
SHIFT SUMMARY PT IS A/O X 4 WITH NO C/O PAIN OR DISCOMFORT. DR RIDER CAME TO SEE HIM FIRST THING THIS MORNING AND ASSESSED HIS HIP AND ORDERED LABS. BASED ON THE RESULTS OF THE LABS SURGERY WAS SCHEDULED FOR THIS AFTERNOON. THE PT WAS AGREEABLE TO THIS TX PLAN AND THANKFUL FOR HIS CARE. HE WAS PICKED UP BY THE SURGICAL NURSE THIS AFTERNOON AND WE ARE AWAITING HIS RETURN.
--- NOTE | 2019-11-28 05:06 | NUR ---
SUMMARY NO ISSUES NOTED. PT DENIES PAIN OR DISCOMFORT. PT HAS BEEN VOIDING WELL. WOUND VAC IS DRAINING WELL. PT HAS REMAINED IN BED AND SLEEPING T/O SHIFT. PT CURRENTLY SLEEPING AND USES CALL LIGHT FOR NEEDS. WCTM.
[2019-11-28 06:37] LABS: BASOPHILS ABSOLUTE AUTO 0.01 K/mm3 (0.00-0.23); BASOPHILS PERCENT AUTO 0 % (0-2); EOSINOPHILS ABSOLUTE AUTO 0.04 K/mm3 (0.00-0.68); EOSINOPHILS PERCENT AUTO 1 % (0-6); Hematocrit 33.2 % (37.0-53.0); Hemoglobin 10.6 g/dL (13.5-17.5); IMMATURE GRAN ABSOLUTE AUTO 0.01 K/mm3 (0.00-0.10); IMMATURE GRAN PERCENT AUTO 0 % (0-1); LYMPHOCYTES ABSOLUTE AUTO 0.83 K/mm3 (0.84-5.20); LYMPHOCYTES PERCENT AUTO 17 % (21-46); MONOCYTES PERCENT AUTO 10 % (4-13); Mean Corpuscular HGB 30.8 pg (26.0-34.0); Mean Corpuscular HGB Conc 31.9 g/dL (31.5-36.5); Mean Corpuscular Volume 97 fL (80-100); Mean Platelet Volume 11.3 fL (9.1-12.4); NEUTROPHILS ABSOLUTE AUTO 3.52 K/mm3 (1.96-9.15); NEUTROPHILS PERCENT AUTO 72 % (41-73); Platelet Count 141 K/mm3 (150-400); RDW Coefficient Variation 13.6 % (11.7-14.2); RDW Standard Deviation 48.5 fL (35.1-46.3); Red Blood Cell Count 3.44 M/mm3 (4.30-5.90); White Blood Cell Count 4.91 K/mm3 (4.00-11.30)
[2019-11-28 06:53] LABS: Anion Gap 8 mmol/L (6-16); Blood Urea Nitrogen 11 mg/dL (8-24); Bun/Creatinine Ratio 20.7 (12.0-20.0); CO2, Blood 23 mmol/L (21-32); Calcium, Blood 8.4 mg/dL (8.5-10.1); Chloride, Blood 102 mmol/L (98-108); Creatinine, Blood 0.53 mg/dL (0.60-1.20); Glomerular Filtration Rate >60 (60-); Glucose, Blood 96 mg/dL (70-99); Potassium, Blood 4.2 mmol/L (3.5-5.5); Sodium, Blood 133 mmol/L (136-145)
[2019-11-28 07:00] LABS: Vancomycin, Trough 18.4 ug/mL (5.0-10.0)
--- NOTE | 2019-11-28 18:19 | NUR ---
SHIFT SUMMARY- PT A/OX4. UP TO CHAIR WITH 1-2 ASSIST AND FWW AND BILAT BRACES FOR CMT. PT REPORTS MINIMAL PAIN ONLY WITH MOVEMENT TO RIGHT HIP. LS CLEAR, ON RA. SOB WITH EXERTION. WOUND VAC TO RIGHT HIP RUNNING AT 120 CONT. 1+ EDEMA TO RIGHT HIP AND RLE. DR RIDER IN TO SEE PT AND REPORTS HE WILL BE IN TOMORROW AM TO CHANGE WOUND VAC. POSSIBLE D[facility]C TO [facility] TOMOR[facility]. PT WITH POOR INTAKE BUT DID ORDER PIZZA FOR DINNER AND WAS ABLE TO EAT SOME PIZZA. NO OTHER ACUTE CHANGES THIS SHIFT.
--- NOTE | 2019-11-29 18:19 | NUR ---
SHIFT SUMMARY PT ANXIOUS ABOUT GOING TO [facility] THIS MORNING AND WANTING TO GET HIS THINGS TOGETHER BEFORE THAT HAPPENED. EXPLAINED TO PT PROCESS OF TRANSFER AND NEED TO SEE MD PRIOR TO DISCHARGING. MD DID ARRIVE TO ROOM APPROX 1145 AND THEN NOTIFIED CASEMANAGEMENT. THIS AFTERNOON IT WAS REPORTED THAT [facility] CHOS[facility] OFF TIL TOMORROW WITH TRANSFER DUE TO THE TIME OF DAY. PT NOTIFIED AND HE WAS QUITE DISAPPOINTED WITH DECISION. HOPING TO BE ABLE TO LEAVE TOMORROW. WILL REPORT CONDITION TO ONCOMING SHIFT.
--- NOTE | 2019-11-30 05:25 | NUR ---
SHIFT SUMMARY- NO ACUTE EVENTS OVERNIGHT. PT. SLEPT ON/OFF T/O THE SHIFT. NO APPARENT DISTRESS NOTED. DENIED ANY C/O PAIN OR DISCOMFORT T/O THE SHIFT. PLAN FOR D/C TO [facility] THIS AM. CALL LIGHT WITHIN REACH AND SIDE RAILS UP X2. WILL CONT TO MONITOR.
--- NOTE | 2019-11-30 07:35 | NUR ---
ASSUMED CARE OF PT- BEDSIDE REPORT COMPLETED WITH NIGHT RN. PT ALERT AND ORIENTED. STATED HE CAN HELP STAFF GET HIM READY SOON HE KNOWS HE IS GOING TO BE DISCHARGED. PLAN IS FOR PT TO DISCHARGE TO IN REHAB. PT STATED HE WILL BE CALLING HIS PCP VINICIO GORDON SOON HE GETS THERE TO SCHEDULE AN APPOINTMENT.
--- NOTE | 2019-11-30 07:48 | NUR ---
PT SBP [address] POWELL, RECIEVED ORDER FOR 500 ML BOLUS ON NS WILL PALCE IV AND ADMINISTER.
[2019-11-30 08:15] LABS: Vancomycin, Trough 13.5 ug/mL (5.0-10.0)
[2019-11-30] MEDS ORDERED: DOCU100 PO (11:09)
[2019-11-30] MEDS ORDERED: HYDR1TAB94 PO (11:09)
[2019-11-30] MEDS ORDERED: SULTRIDS PO (11:10)
[2019-11-30] MEDS ORDERED: Milk Of Ma400 MG/5 M PO (11:10)
[2019-11-30] MEDS ORDERED: PROBIOTIC PO (11:11)
--- NOTE | 2019-11-30 14:00 | NUR ---
DISCHARGE NOTE- RECIEVED A CALL FROM NURSING DIGITAL CONTENT COORDINATOR, APPROVED FOR THE PT TO DISCHARGE TO [facility] WITH [facility]OSPITAL WOUND VAC. EQUIPMENT ID FOR WOUND VAC SENT OUT WITH THE PT [id number]. [facility] TO RETURN ONCE PT WOUND VAC IS AVAILABLE. SUPPLIES SENT WITH THE PT FOR WOUND VAC CHANGE.
--- NOTE | 2019-11-30 14:48 | NUR ---
DISCHARGE NOTE- PT DISCHARGED TO [facility]. IV DC'D PRIOR TO DISCHARGE. PT ALERT AND ORIENTED 2PA FOR PIVOT TRANSFER TO THE . PT WAS TAKEN BY TRANSPORT TO [facility]. TELEPHONE REPORT GIVEN TO RN AT [place], SHE HAS CONTACT INFO IF QUESTIONS SHOULD ARISE.
== END 2019-11-30 14:09 | DRG 908 ==
LOC: ER 16:39 → MEDS 23:32 → ENPENDDIS 11-30 10:47 → MEDS 11-30 14:09
PROVIDERS: Emergency Medicine; Nurse Practitioner Acute Care; Orthopaedic Surgery; Pharmacist; Student in an Organized Health Care Education/Training Program; ADMIT Family Medicine
PROC: 0SBC0ZZ Excision of Right Knee Joint, Open Approach (ICD-10-PCS; principal; 2019-11-27 14:30)
DX: M96.842 Postprocedural seroma of a musculoskeletal structure following a musculoskeletal system procedure (principal); T84.51XA Infection and inflammatory reaction due to internal right hip prosthesis, initial encounter; E87.1 Hypo-osmolality and hyponatremia; Z96.641 Presence of right artificial hip joint; B95.8 Unspecified staphylococcus as the cause of diseases classified elsewhere; I10 Essential (primary) hypertension; Z86.73 Personal history of transient ischemic attack (TIA), and cerebral infarction without residual deficits; Z87.891 Personal history of nicotine dependence; G60.0 Hereditary motor and sensory neuropathy; R26.9 Unspecified abnormalities of gait and mobility
CPT/HCPCS: 20610; 36415; 73701; 80048; 80053; 80202; 82565; 83605; 85025; 85610; 85651; 86140; 87040; 87070; 87075; 87205; 96365-59; 96366-59; 96367-59; 97110; 97162; 99285-25; A9270; A9270-GY; J0692; J1100; J1650; J2250; J2370; J2405; J2543; J2704; J3010; J3370; J7030; J7040; J7050; J7120; Q9967

== ENCOUNTER 2019-12-02 11:34 | Inpatient (IN) | payer OTHER, MEDICARE ==
[~2019-12-02] VITALS: Ht 193 cm; Wt 109.8 kg
[~2019-12-02 11:34] MED LIST changes: +DOCU100 PO; +HYDR1TAB94 PO; +Milk Of Ma400 MG/5 M PO; +PROBIOTIC PO; +SULTRIDS PO
[2019-12-02] MEDS ORDERED: HYDHCL25 PO (12:02)
[2019-12-02] MEDS ORDERED: PRINIVIL10 MG PO (12:51)
[2019-12-02 13:04] LABS: BASOPHILS ABSOLUTE AUTO 0.01 K/mm3 (0.00-0.23); BASOPHILS PERCENT AUTO 0 % (0-2); EOSINOPHILS ABSOLUTE AUTO 0.46 K/mm3 (0.00-0.68); EOSINOPHILS PERCENT AUTO 10 % (0-6); Hematocrit 32.6 % (37.0-53.0); Hemoglobin 10.3 g/dL (13.5-17.5); IMMATURE GRAN ABSOLUTE AUTO 0.03 K/mm3 (0.00-0.10); IMMATURE GRAN PERCENT AUTO 1 % (0-1); LYMPHOCYTES ABSOLUTE AUTO 0.41 K/mm3 (0.84-5.20); LYMPHOCYTES PERCENT AUTO 9 % (21-46); MONOCYTES ABSOLUTE AUTO 0.32 K/mm3 (0.16-1.47); MONOCYTES PERCENT AUTO 7 % (4-13); Mean Corpuscular HGB 30.2 pg (26.0-34.0); Mean Corpuscular HGB Conc 31.6 g/dL (31.5-36.5); Mean Corpuscular Volume 96 fL (80-100); NEUTROPHILS PERCENT AUTO 72 % (41-73); RDW Standard Deviation 48.9 fL (35.1-46.3); Red Blood Cell Count 3.41 M/mm3 (4.30-5.90); White Blood Cell Count 4.43 K/mm3 (4.00-11.30)
[2019-12-02 13:13] LABS: Alanine Aminotransfer (ALT/SGP 14 U/L (12-78); Albumin, Blood 2.4 g/dL (3.4-5.0); Albumin/Globulin Ratio 0.6 (0.8-1.8); Alk Phos 88 U/L (50-136); Anion Gap 6 mmol/L (6-16); Aspartate Aminotrans (AST/SGOT 15 U/L (12-37); Bilirubin, Total 0.7 mg/dL (0.1-1.0); Blood Urea Nitrogen 16 mg/dL (8-24); Bun/Creatinine Ratio 18.3 (12.0-20.0); CO2, Blood 24 mmol/L (21-32); Calcium, Blood 8.1 mg/dL (8.5-10.1); Chloride, Blood 104 mmol/L (98-108); Creatinine, Blood 0.87 mg/dL (0.60-1.20); Globulin, Blood 3.7 g/dL (2.2-4.0); Glomerular Filtration Rate >60 (60-); Glucose, Blood 121 mg/dL (70-99); Potassium, Blood 3.8 mmol/L (3.5-5.5); Sodium, Blood 134 mmol/L (136-145); Total Protein, Blood 6.1 g/dL (6.4-8.2)
[2019-12-02 13:14] LABS: Platelet Count 6 K/mm3 (150-400)
[2019-12-05 14:10] LABS: HEPARIN INDUCED PLATELET AB 0.131 OD (0.000-0.400)
== END 2019-12-02 18:48 | disposition short-term general hospital (02) | DRG 813 ==
LOC: ER 11:34 → MEDS 13:14
PROVIDERS: Emergency Medicine; ADMIT Internal Medicine
PROC: 30233R1 Transfusion of Nonautologous Platelets into Peripheral Vein, Percutaneous Approach (ICD-10-PCS; principal; 2019-12-02)
DX: D75.82 Heparin induced thrombocytopenia (HIT) (principal); I82.401 Acute embolism and thrombosis of unspecified deep veins of right lower extremity; Z20.828 Contact with and (suspected) exposure to other viral communicable diseases; T45.515A Adverse effect of anticoagulants, initial encounter; D69.59 Other secondary thrombocytopenia; T36.8X5A Adverse effect of other systemic antibiotics, initial encounter; D69.3 Immune thrombocytopenic purpura; S70.01XD Contusion of right hip, subsequent encounter; I10 Essential (primary) hypertension; G60.0 Hereditary motor and sensory neuropathy; Z79.899 Other long term (current) drug therapy; Z79.891 Long term (current) use of opiate analgesic; Z87.891 Personal history of nicotine dependence; Z86.73 Personal history of transient ischemic attack (TIA), and cerebral infarction without residual deficits
CPT/HCPCS: 36415; 36430; 80053; 85025; 86022; 86900; 86901; 93971; 96374; 99285-25; J2930; P9035; U0002

== ENCOUNTER → 2019-12-31 | Outpatient (CLI) | payer MEDICARE ==
[~2019-12-31] MED LIST changes: +HYDHCL25 PO; +PRINIVIL10 MG PO
[2019-12-31 19:48] LABS: BASOPHILS ABSOLUTE AUTO 0.01 K/mm3 (0.00-0.23); BASOPHILS PERCENT AUTO 0 % (0-2); EOSINOPHILS ABSOLUTE AUTO 0.18 K/mm3 (0.00-0.68); EOSINOPHILS PERCENT AUTO 4 % (0-6); Hematocrit 35.8 % (37.0-53.0); IMMATURE GRAN ABSOLUTE AUTO 0.01 K/mm3 (0.00-0.10); IMMATURE GRAN PERCENT AUTO 0 % (0-1); LYMPHOCYTES ABSOLUTE AUTO 0.97 K/mm3 (0.84-5.20); LYMPHOCYTES PERCENT AUTO 22 % (21-46); MONOCYTES ABSOLUTE AUTO 0.57 K/mm3 (0.16-1.47); MONOCYTES PERCENT AUTO 13 % (4-13); Mean Corpuscular HGB 30.1 pg (26.0-34.0); Mean Corpuscular HGB Conc 30.7 g/dL (31.5-36.5); Mean Corpuscular Volume 98 fL (80-100); Mean Platelet Volume 11.7 fL (9.1-12.4); NEUTROPHILS ABSOLUTE AUTO 2.76 K/mm3 (1.96-9.15); NEUTROPHILS PERCENT AUTO 61 % (41-73); Platelet Count 156 K/mm3 (150-400); RDW Coefficient Variation 15.6 % (11.7-14.2); RDW Standard Deviation 55.9 fL (35.1-46.3); Red Blood Cell Count 3.66 M/mm3 (4.30-5.90)
[2019-12-31 20:07] LABS: Anion Gap 5 mmol/L (6-16); Blood Urea Nitrogen 13 mg/dL (8-24); Bun/Creatinine Ratio 18.3 (12.0-20.0); CO2, Blood 27 mmol/L (21-32); Calcium, Blood 8.8 mg/dL (8.5-10.1); Chloride, Blood 106 mmol/L (98-108); Creatinine, Blood 0.71 mg/dL (0.60-1.20); Glomerular Filtration Rate >60 (60-); Glucose, Blood 84 mg/dL (70-99); Potassium, Blood 3.9 mmol/L (3.5-5.5); Sodium, Blood 138 mmol/L (136-145)
== END | disposition home or self-care (01) ==
LOC: LAB UVN 18:52 → LAB 18:52 → LAB SHORT 18:52
PROVIDERS: Family Medicine; Nurse Practitioner Family
DX: D69.6 Thrombocytopenia, unspecified (principal); I10 Essential (primary) hypertension; D69.59 Other secondary thrombocytopenia
CPT/HCPCS: 80048; 85025